=== PATIENT | male | born 1960 | race Two or more races ===

== ENCOUNTER → 2019-01-17 | Emergency (ER) | payer OTHER ==
[~2019-01-17] VITALS: Ht 193 cm; Wt 90.7 kg
[~2019-01-17] MED LIST: LIPITOR40 MG; NORVASC2.5 M1; PLAVIX75 MG; RAMIPRIL1.25 MG
== END | disposition home or self-care (01) ==
LOC: ER 18:25
DX: J32.2 Chronic ethmoidal sinusitis (principal)

== ENCOUNTER → 2019-01-21 | Emergency (ER) | payer OTHER ==
[~2019-01-21] VITALS: Ht 193 cm; Wt 81.6 kg
== END | disposition left against medical advice (07) ==
LOC: ER 16:08
DX: Z53.20 Procedure and treatment not carried out because of patient's decision for unspecified reasons (principal)